=== PATIENT | female | born 1975 | race Caucasian/White ===

== ENCOUNTER 2016-10-09 02:15 | Emergency (ER) | payer OTHER ==
[~2016-10-09 02:15] MED LIST: CYMBALTA PO; KLONOPIN PO; NO MEDICATIONS; ONDANSETRO4 MG/UDTAB PO; TRAZODONE PO
[2016-10-09 02:48] LABS: URINE SOURCE CLEAN CATCH
[2016-10-09 02:55] LABS: URINE APPEARANCE CLEAR; URINE BILIRUBIN NEG (NEG); URINE BLOOD NEG (NEG); URINE COLOR YELLOW; URINE GLUCOSE NEG (NEG); URINE KETONE NEG (NEG); URINE LEUKOCYTE ESTERASE NEG (NEG); URINE NITRATE NEG (NEG); URINE PH 5.5 (5-8); URINE PROTEIN NEG (NEG); URINE SPECIFIC GRAVITY 1.007 (1.003-1.035); URINE UROBILINOGEN 0.2 MG/DL (NEG)
[2016-10-09 03:17] LABS: CULTURE INDICATED? NO
== END 2016-10-09 06:56 | disposition home or self-care (01) ==
LOC: CED 02:15
DX: R10.9 Unspecified abdominal pain (principal); F17.200 Nicotine dependence, unspecified, uncomplicated
CPT/HCPCS: 81003; 84703; 99284